=== PATIENT | male | born 1990 | race African-American/Black ===

== ENCOUNTER 2017-01-15 11:06 | Emergency (ER) | payer OTHER ==
[~2017-01-15] VITALS: Ht 193 cm; Wt 119.5 kg
[~2017-01-15 11:06] MED LIST: AFRIN,GENASAL D15 ML BOTH NARES; AMOXICILLIN500 M1 PO; ATARAX,VISTARIL50 MG PO; INDOCIN50 MG PO; LEVAQUIN500 MG PO; MAGIC MOUTHWASH1 ML MM; MOTRIN600 MG PO; PEPCID20 MG PO; PREDNISONE20 MG PO; PROMETHAZINE HC25 M1 PO; ROBITUSSIN DM118 ML PO; VENTOLIN HFA18 GM IH; ZITHROMAX Z-PA250 MG PO; ZITHROMAX250 MG PO; ZOFRAN4 MG PO; no home
[2017-01-15 11:55] LABS: HEMATOCRIT 46.8 % (38.0-50.0); MCH 30.7 PG (29.0-34.0); MCHC 35.3 G/DL (30.0-36.0); MEAN PLAT.VOLUME 10.3 uM^3 (9.0-12.4); PLATELET COUNT 237 K/uL (156-360); RBC DIS.WIDTH-CV 11.8 % (11.8-14.6); RBC DIS.WIDTH-SD 37.4 % (39-53); RED BLOOD COUNT 5.38 M/uL (4.00-5.50); WHITE BLOOD COUNT 9.4 K/uL (4.1-10.2)
[2017-01-15 12:07] LABS: CHLORIDE 106 mEq/L (99-109); SODIUM 140 mEq/L (136-147)
[2017-01-15 12:09] LABS: GLUCOSE 116 mg/dL (70-99)
[2017-01-15 12:10] LABS: ANION GAP 8 MEQ/L (2-14)
[2017-01-15 12:12] LABS: SERUM ETHYL ALCOHOL < 10 mg/dL
[2017-01-15 12:13] LABS: GFR ESTIMATE (CALCULATED) > 59 mL/min/; UREA NITROGEN (BUN) 14 mg/dL (9-23)
[2017-01-15 13:30] LABS: AMPHETAMINE NEGATIVE (500 ng/mL); BARBITURATES NEGATIVE (200 ng/mL); BENZODIAZEPINES NEGATIVE (150 ng/mL); COCAINE PRESUMPTIVE POSITIVE (150 ng/mL); INTERNAL CONTROLS VALID? YES; METHADONE NEGATIVE (200 ng/mL); METHAMPHETAMINE NEGATIVE (500 ng/mL); OPIATES (MORPHINE) NEGATIVE (100 ng/mL); OXYCODONE PRESUMPTIVE POSITIVE (100 ng/mL); PHENCYCLIDINE NEGATIVE (25 ng/mL); PROPOXYPHENE NEGATIVE (300 ng/mL); THC CANNABINOIDS PRESUMPTIVE POSITIVE (50 ng/mL); TRICYCLIC ANTIDEPRESSANTS NEGATIVE (300 ng/mL)
[2017-01-15 13:31] LABS: ADD MEDTOX COMMENT Y
[2017-01-15 16:04] VITALS: BP 148/71
== END 2017-01-15 16:04 | disposition home or self-care (01) ==
LOC: EME 11:06
DX: F41.1 Generalized anxiety disorder (principal); F17.200 Nicotine dependence, unspecified, uncomplicated
CPT/HCPCS: 80048; 84999; 85027; 90839; 99281; 99284; G0480

== ENCOUNTER 2017-03-19 17:48 | Emergency (ER) | payer OTHER ==
[~2017-03-19] VITALS: Ht 193 cm; Wt 116.6 kg
[2017-03-19] MEDS ORDERED: ANUSOL-HC21 GM PR (19:40)
[2017-03-19] MEDS ORDERED: NYSTATIN15 GM TP (19:40)
[2017-03-19 19:52] VITALS: BP 135/85
== END 2017-03-19 20:04 | disposition home or self-care (01) ==
LOC: EME 17:48 → EXP 17:48
DX: B37.89 Other sites of candidiasis (principal); F17.200 Nicotine dependence, unspecified, uncomplicated
CPT/HCPCS: 99281; 99283

== ENCOUNTER 2017-09-21 09:49 | Emergency (ER) | payer OTHER ==
[~2017-09-21] VITALS: Ht 193 cm; Wt 117.4 kg
[~2017-09-21 09:49] MED LIST changes: +ANUSOL-HC21 GM PR; +NYSTATIN15 GM TP
[2017-09-21 12:46] LABS: ADD MIUA? YES; BILIRUBIN NEGATIVE; BLOOD NEGATIVE; COLOR YELLOW ((YELLOW)); GLUCOSE (STRIP) NEGATIVE; KETONES NEGATIVE; LEUKOCYTES TRACE; NITRITE NEGATIVE; PROTEIN (STRIP) NEGATIVE; SPECIFIC GRAVITY 1.023 (1.000-1.030); UROBILINOGEN 0.2 MG/DL (0.2-1.0)
[2017-09-21 12:49] LABS: BACTERIA RARE /HPF; EPITHELIAL CELLS NONE SEEN /HPF; MUCUS TRACE /LPF; RED BLOOD CELLS 0-5 /HPF (0-5); WHITE BLOOD CELLS 0-5 /HPF (0-5)
[2017-09-21] MEDS ORDERED: ZOFRAN ODT4 MG PO (13:49)
[2017-09-21 13:56] VITALS: BP 134/75
[2017-09-23 12:21] LABS: CHLAMYDIA TRACHOMATIS NEGATIVE; NEISSERIA GONORRHOEAE NEGATIVE
== END 2017-09-21 13:58 | disposition home or self-care (01) ==
LOC: EME 09:49
PROVIDERS: Nurse Practitioner Family
PROC: 3E1B78Z Irrigation of Ear using Irrigating Substance, Via Natural or Artificial Opening (ICD-10-PCS; principal; 2017-09-21)
DX: J02.8 Acute pharyngitis due to other specified organisms (principal); B34.9 Viral infection, unspecified; R11.0 Nausea; H61.23 Impacted cerumen, bilateral; Z11.3 Encounter for screening for infections with a predominantly sexual mode of transmission; M54.5 Low back pain; F43.10 Post-traumatic stress disorder, unspecified; F32.9 Major depressive disorder, single episode, unspecified; F17.200 Nicotine dependence, unspecified, uncomplicated
CPT/HCPCS: 81003; 87491; 87502; 87591; 87651 90; 99281; 99284; J1885

== ENCOUNTER 2018-06-18 08:54 | Emergency (ER) | payer OTHER ==
[~2018-06-18] VITALS: Ht 190.5 cm; Wt 114.4 kg
[~2018-06-18 08:54] MED LIST changes: +ZOFRAN ODT4 MG PO
[2018-06-18] MEDS ORDERED: ZOFRAN ODT4 MG PO (10:06)
[2018-06-18] MEDS ORDERED: BENTYL10 MG PO (10:06)
[2018-06-18 10:29] VITALS: BP 141/82
== END 2018-06-18 10:48 | disposition home or self-care (01) ==
LOC: EME 08:54
DX: J06.9 Acute upper respiratory infection, unspecified (principal); R11.2 Nausea with vomiting, unspecified; R19.7 Diarrhea, unspecified; F17.200 Nicotine dependence, unspecified, uncomplicated
CPT/HCPCS: 99281; 99284